=== PATIENT | male | born 2000 | race African-American/Black ===

== ENCOUNTER 2022-06-11 14:40 | Observation (INO) ==
[2022-06-11 16:27] LABS: Hematocrit 44 % (42-52); Hemoglobin 14.7 g/dL (14.0-18.0); Mean Corpuscular HGB Conc 34 g/dL (31-36); Mean Corpuscular Hemoglobin 30 pg (27-31); Mean Corpuscular Volume 89 fL (80-94); Mean Platelet Volume 8.1 fL (7.4-10.4); Platelet Count 300 10^3/uL (150-450); Red Blood Count 4.91 10^6 /uL (4.18-5.48); Red Cell Distribution Width 13 % (10-15); White Blood Count 16.4 10^3/uL (3.5-10.8)
[2022-06-11 16:28] LABS: Urine Appearance Cloudy; Urine Bilirubin Negative (Negative); Urine Blood Negative (Negative); Urine Color Yellow; Urine Glucose Negative (Negative); Urine Ketones 1+ (Negative); Urine Nitrite Negative (Negative); Urine Protein 1+(30 mg/dL) (Negative); Urine Specific Gravity 1.031 (1.002-1.030); Urine Urobilinogen Negative (Negative)
[2022-06-11 16:33] LABS: Urine Bacteria 1+ (Absent); Urine Red Blood Cell 3+(>10/hpf) (Absent); Urine Squamous Epithelial Cell Present (Absent); Urine White Blood Cell 3+(>20/hpf) (Absent)
[2022-06-11 17:01] LABS: ABS Basophils 0.1 10^3/ul (0-0.2); ABS Lymphocytes 1.6 10^3/ul (1.0-4.8); ABS Neutrophils 12.7 10^3/ul (1.5-7.7); Eosinophil % 0.2 %; Lymphocyte % 9.5 %; Nucleated Red Blood Cells % 0.1
[2022-06-11 17:08] LABS: Albumin 4.2 g/dL (3.2-5.2); Albumin/Globulin Ratio 1.3 (1-3); C Reactive Protein 120.33 mg/L (<8.01); Calcium 9.5 mg/dL (8.6-10.3); Globulin 3.2 g/dL (2-4); Total Bilirubin 0.7 mg/dL (0.2-1.0); Total Protein 7.4 g/dL (6.4-8.9); eGFR CKD-EPI 107.8 (>60)
[2022-06-11] MEDS ORDERED: Iohexol 350 (CONTRAST) 500 ML MDV IV ONE (17:19)
[2022-06-11] MEDS ORDERED: NS 0.9% 1000 ml BAG 1,000 ML IV ONE (18:19)
[2022-06-11] MEDS ORDERED: ceFOXitin 2 GM IVPREMIX 2 GM/50 ML BAG IVPB ONE (18:22)
[2022-06-11 19:47] LABS: HIV 4th Generation Nonreactive (Nonreactive)
[2022-06-11] MEDS ORDERED: Bupivacaine 0.25% SDV 30 ML ONE (20:08)
[2022-06-11] MEDS ORDERED: fentaNYL 250 mcg/5 ml 50 MCG/ML 5 ml VIAL (250 MCG) ONE (20:28)
[2022-06-11] MEDS ORDERED: Lidocaine 2% PF 5 ML VIAL ONE (20:28)
[2022-06-11] MEDS ORDERED: Succinylcholine 200 mg VIAL 20 mg/ml 10 ml VIAL (200 mg) ONE (20:28)
[2022-06-11] MEDS ORDERED: Propofol 10 MG/ML 20 ML BTL ONE ×2 (20:28→21:06)
[2022-06-11] MEDS ORDERED: Sodium Citrate/Citric Acid LIQ 15 ML UDC PO ONE (20:34)
[2022-06-11] MEDS ORDERED: Dexamethasone IV 4 MG/ML VIAL 1 ml VIAL IV SLOW PU ONE (20:34)
[2022-06-11] MEDS ORDERED: Buffered Lidocaine 1% SYRIN 1 ml INTRADERM ONE (20:34)
[2022-06-11] MEDS ORDERED: Sodium Citrate/Citric Acid LIQ 15 ML UDC ONE (20:35)
[2022-06-11] MEDS ORDERED: Dexamethasone IV 4 MG/ML VIAL 1 ml VIAL ONE (20:35)
[2022-06-11] MEDS ORDERED: Prochlorperazine 5 mg/ml 2 ml VIAL (10 mg) IV PRN (20:38)
[2022-06-11] MEDS ORDERED: HYDROcodone/ACETAMIN 5/325 mg TAB PO PRN (20:38)
[2022-06-11] MEDS ORDERED: oxyCODONE/Acetamin 5/325 mg TAB PO PRN (20:38)
[2022-06-11] MEDS ORDERED: Naloxone 0.4 mg VIAL 0.4 mg/ml 1 ml VIAL IV PRN (20:38)
[2022-06-11] MEDS ORDERED: Lactated Ringers 1000 ml BAG 1,000 ML IV SCH (21:00)
[2022-06-11] MEDS ORDERED: Rocuronium 50 mg VIAL 10 mg/ml 5 ml VIAL (50 mg) ONE ×2 (21:17→23:05)
[2022-06-11] MEDS ORDERED: Phenylephrine IV 10 MG/ML 1 ml VIAL ONE (21:28)
[2022-06-11] MEDS ORDERED: fentaNYL 100 mcg/2 ml 50 MCG/ML VIAL ONE (23:36)
[2022-06-11] MEDS ORDERED: Ondansetron 4 mg VIAL 2 MG/ML 2 ml VIAL ONE (23:37)
[2022-06-12] MEDS ORDERED: Ondansetron 4 mg VIAL 2 MG/ML 2 ml VIAL IV PRN (00:29)
[2022-06-12] MEDS ORDERED: NS 0.9% 1000 ml BAG 1,000 ML IV SCH (00:45)
[2022-06-12] MEDS ORDERED: fentaNYL 100 mcg/2 ml 50 MCG/ML VIAL ONE ×2 (00:47→01:09)
[2022-06-12] MEDS: fentaNYL 100 mcg/2 ml 50 MCG/ML VIAL IV PRN ×4 (00:48→01:47)
[2022-06-12] MEDS ORDERED: Piperacillin/Tazobac 3.375 GM BAG ONE (01:05)
[2022-06-12] MEDS: Piperacillin/Tazobactam VIAL 3.375 GM in NS 0.9% 100 ml BAG 100 ML IVPB SCH ×2 (01:32→08:34)
[2022-06-12] MEDS: HYDROmorphone 0.5 MG/0.5 ML SYRINGE IV SLOW PU PRN ×2 (03:30→08:27)
[2022-06-12] MEDS ORDERED: Piperacillin/Tazobactam VIAL 3.375 GM in NS 0.9% 100 ml BAG 100 ML IVPB SCH (05:00)
[2022-06-12 12:35] VITALS: BP 137/66
== END 2022-06-12 16:35 | disposition home or self-care (01) ==
LOC: ED 14:40 → MEDTELE 20:26 → OR 20:26 → MEDTELE 06-12 07:17
PROVIDERS: ADMIT Surgery Surgical Critical Care; ATTEND Surgery Surgical Critical Care

== ENCOUNTER 2022-06-22 19:08 | Inpatient (IN) ==
[2022-06-22] MEDS ORDERED: Lactated Ringers 1000 ml BAG 1,000 ML IV ONE (19:50)
[2022-06-22] MEDS ORDERED: Morphine 4 MG/ML VIAL (1 ml) IV ONE ×2 (19:50→21:47)
[2022-06-22] MEDS ORDERED: Ondansetron 4 mg VIAL 2 MG/ML 2 ml VIAL IV ONE (19:50)
[2022-06-22 20:00] LABS: Hematocrit 43 % (42-52); Hemoglobin 14.5 g/dL (14.0-18.0); Mean Corpuscular HGB Conc 34 g/dL (31-36); Mean Corpuscular Hemoglobin 30 pg (27-31); Mean Corpuscular Volume 90 fL (80-94); Platelet Count 390 10^3/uL (150-450); Red Blood Count 4.77 10^6 /uL (4.18-5.48); Red Cell Distribution Width 13 % (10-15); White Blood Count 19.6 10^3/uL (3.5-10.8)
[2022-06-22 20:43] LABS: Urine Appearance Clear; Urine Bilirubin 1+ (Small) (Negative); Urine Blood Trace (Intact) (Negative); Urine Color Yellow; Urine Glucose Negative (Negative); Urine Ketones Trace (Negative); Urine Protein 1+ (30 mg/dL) (Negative); Urine Specific Gravity 1.027 (1.002-1.030)
[2022-06-22 20:44] LABS: Urine Bacteria 1+ (Absent); Urine Nitrite Negative (Negative); Urine Red Blood Cell 2+(6-10/hpf) (Absent); Urine Squamous Epithelial Cell Present (Absent); Urine Urobilinogen 0.2 (Negative) (Negative); Urine White Blood Cell 2+(11-20/hpf) (Absent)
[2022-06-22 20:44] LABS: Potassium 4.8 mmol/L (3.5-5.0)
[2022-06-22 20:45] LABS: C Reactive Protein 159.11 mg/L (<8.01); Calcium 9.8 mg/dL (8.6-10.3); Globulin 4.2 g/dL (2-4); Total Bilirubin 0.5 mg/dL (0.2-1.0); Total Protein 8.2 g/dL (6.4-8.9); eGFR CKD-EPI 98.4 (>60)
[2022-06-22 20:52] LABS: ABS Lymphocytes 1.5 10^3/ul (1.0-4.8); ABS Monocytes 1.7 10^3/ul (0-0.8); ABS Neutrophils 16.2 10^3/ul (1.5-7.7); Eosinophil % 0.2 %; Lymphocyte % 7.9 %; Nucleated Red Blood Cells % 0.1
[2022-06-22] MEDS ORDERED: Iohexol 350 (CONTRAST) 500 ML MDV IV ONE (20:56)
[2022-06-22] MEDS ORDERED: Piperacillin/Tazobac ADVAN 3.375 GM in NS 0.9% 100 ml BAG 100 ML IV ONE (21:05)
[2022-06-22] MEDS ORDERED: Ondansetron 4 mg VIAL 2 MG/ML 2 ml VIAL IV PRN (23:18)
[2022-06-23] MEDS: ZOSYN 3.375 GM Q8H per EXTENDED INFUSION IV SCH ×4 (02:00→17:51)
[2022-06-23] MEDS ORDERED: Piperacillin/Tazobactam VIAL 3.375 GM in NS 0.9% 100 ml BAG 100 ML IVPB SCH (04:00)
[2022-06-23] MEDS: HYDROmorphone 0.5 MG/0.5 ML SYRINGE IV SLOW PU PRN ×2 (05:09→07:30)
[2022-06-23] MEDS ORDERED: HYDROmorphone 1 MG/1 ML SYRINGE IV SLOW PU PRN (09:21)
[2022-06-23] MEDS ORDERED: HYDROmorphone 0.5 MG/0.5 ML SYRINGE IV SLOW PU PRN (09:21)
[2022-06-23] MEDS: D5W 1/2 NS 40 Meq KCL 1000 ml 1,000 ML IV SCH (09:30)
[2022-06-23 10:20] LABS: INR 1.61 (0.89-1.11)
[2022-06-23] MEDS ORDERED: fentaNYL 100 mcg/2 ml 50 MCG/ML VIAL ONE ×2 (14:25→15:05)
[2022-06-24] MEDS: D5W 1/2 NS 40 Meq KCL 1000 ml 1,000 ML IV SCH ×2 (01:33→16:01)
[2022-06-24] MEDS: ZOSYN 3.375 GM Q8H per EXTENDED INFUSION IV SCH ×4 (02:30→22:45)
[2022-06-24 07:00] LABS: ABS Lymphocytes 0.4 10^3/ul (1.0-4.8); ABS Monocytes 2.2 10^3/ul (0-0.8); ABS Neutrophils 18.4 10^3/ul (1.5-7.7); Eosinophil % 0.1 %; Hematocrit 36 % (42-52); Hemoglobin 11.9 g/dL (14.0-18.0); Mean Corpuscular HGB Conc 33 g/dL (31-36); Mean Corpuscular Hemoglobin 29 pg (27-31); Mean Corpuscular Volume 88 fL (80-94); Mean Platelet Volume 9.1 fL (7.4-10.4); Platelet Count 302 10^3/uL (150-450); Red Blood Count 4.07 10^6 /uL (4.18-5.48); Red Cell Distribution Width 13 % (10-15); White Blood Count 21.1 10^3/uL (3.5-10.8)
[2022-06-24 07:23] LABS: Calcium 8.6 mg/dL (8.6-10.3); Potassium 4.9 mmol/L (3.5-5.0); eGFR CKD-EPI 78.9 (>60)
[2022-06-24] MEDS ORDERED: NS 0.9% 1000 ml BAG 1,000 ML IV ONE (09:22)
[2022-06-25] MEDS: D5W 1/2 NS 40 Meq KCL 1000 ml 1,000 ML IV SCH (02:58)
[2022-06-25] MEDS: ZOSYN 3.375 GM Q8H per EXTENDED INFUSION IV SCH ×3 (06:21→21:09)
[2022-06-25 12:41] LABS: Hematocrit 36 % (42-52); Hemoglobin 11.7 g/dL (14.0-18.0); Mean Corpuscular HGB Conc 33 g/dL (31-36); Mean Corpuscular Hemoglobin 29 pg (27-31); Mean Corpuscular Volume 89 fL (80-94); Mean Platelet Volume 8.3 fL (7.4-10.4); Platelet Count 301 10^3/uL (150-450); Red Blood Count 4.04 10^6 /uL (4.18-5.48); Red Cell Distribution Width 12 % (10-15); White Blood Count 12.2 10^3/uL (3.5-10.8)
[2022-06-25 12:52] LABS: ABS Lymphocytes 0.6 10^3/ul (1.0-4.8); ABS Monocytes 2.1 10^3/ul (0-0.8); ABS Neutrophils 9.5 10^3/ul (1.5-7.7); Eosinophil % 0.4 %; Lymphocyte % 4.9 %
[2022-06-25] MEDS: Acetaminophen IV 1 GM/100ML 1,000 MG/100 ML BAG IV SCH ×2 (13:33→19:09)
[2022-06-26] MEDS: Acetaminophen IV 1 GM/100ML 1,000 MG/100 ML BAG IV SCH ×4 (01:31→16:23)
[2022-06-26] MEDS: ZOSYN 3.375 GM Q8H per EXTENDED INFUSION IV SCH ×2 (05:28→16:22)
[2022-06-26 11:46] VITALS: BP 133/76
== END 2022-06-26 16:25 | disposition home or self-care (01) | DRG 721 ==
LOC: EDHOLD 19:08 → ED 19:08 → SSU 06-23 07:45
PROVIDERS: ADMIT Surgery; ATTEND Surgery